=== PATIENT | female | born 1945 | race African-American/Black ===

== ENCOUNTER 2016-08-01 16:10 | Emergency (ER) | payer OTHER ==
[~2016-08-01] VITALS: Ht 157.5 cm; Wt 81.7 kg
[~2016-08-01 16:10] MED LIST: ALEVE220 MG PO; ASPIRIN81 M2 PO; BYSTOLIC10 MG PO; CIPROFLOXACIN500 M1 PO; COZAAR 25 MG TA25 M2; IBUPROFEN 200200 M1 PO; MEDROL DOSPAK21 TAB PO; NAPROSYN250 MG PO; PREVASTATIN; PRILOSEC 20 MG20 MG PO; VALIUM2 MG PO
[2016-08-01] MEDS ORDERED: HYDROCHLOROTH12.5 M2 PO (16:18)
[2016-08-01] MEDS ORDERED: AMLODIPINE BESY10 MG PO (16:18)
[2016-08-01] MEDS ORDERED: DIAZEPAM2 MG PO (16:19)
[2016-08-01] MEDS ORDERED: SYMBICORT160 MCG/4. INH (16:19)
[2016-08-01] MEDS ORDERED: VENTOLIN HFA 1818 GM INH (16:19)
[2016-08-01] MEDS ORDERED: NEURONTIN 300300 M1 PO (16:19)
[2016-08-01] MEDS ORDERED: NORCO 5-325 TA1 EACH PO (17:28)
[2016-08-01] MEDS ORDERED: ZOFRAN ODT4 MG PO (17:28)
[2016-08-01 17:43] VITALS: BP 152/68
== END 2016-08-01 17:46 | disposition home or self-care (01) ==
LOC: ER 16:10
DX: M79.662 Pain in left lower leg (principal); J32.9 Chronic sinusitis, unspecified; Z90.710 Acquired absence of both cervix and uterus; Z86.14 Personal history of Methicillin resistant Staphylococcus aureus infection; Z87.440 Personal history of urinary (tract) infections; Z88.5 Allergy status to narcotic agent; Z88.8 Allergy status to other drugs, medicaments and biological substances; Z88.1 Allergy status to other antibiotic agents; Z88.6 Allergy status to analgesic agent